=== PATIENT | male | born 1985 | race American Indian/Alaskan Native ===

== ENCOUNTER 2021-06-29 13:01 | Outpatient (CLI) | payer MEDICARE ==
[2021-06-29 14:13] LABS: ABG Base Excess -0.1 mmol/L (-2.0-3.0); ABG HCO3 25.4 mmol/L (20.0-26.0); ABG Methemoglobin 0.5 % (0.0-1.5); ABG Oxygen Saturation 96.9 % (95.0-99.0); ABG PCO2 44.6 mm Hg; ABG PH 7.374 pH Units (7.350-7.450)
== END 2021-06-29 13:02 | disposition home or self-care (01) ==
LOC: LAB 13:01
PROVIDERS: ATTEND Internal Medicine
DX: Z77.128 Contact with and (suspected) exposure to other hazards in the physical environment (principal)
CPT/HCPCS: 82803